=== PATIENT | female | born 1965 | race Caucasian/White ===

== ENCOUNTER 2018-06-10 13:34 | Outpatient (CLI) | payer OTHER | END 2018-06-10 13:35 | disposition home or self-care (01) | LOC: DI 13:34 | DX: Z12.31 Encounter for screening mammogram for malignant neoplasm of breast (principal) | CPT/HCPCS: 77063; 77067 ==

== ENCOUNTER 2019-08-09 11:16 | Outpatient (CLI) | payer OTHER ==
--- NOTE | 2019-08-09 15:03 | Mammography Report ---
Reason: ROUTINE MAMMO Procedure Date: 08/09/2019 Accession Number: [id number] Procedure: ROMELIA - Screening Mammo w/Mark CPT Code: Final Report FULL RESULT: EXAM: Screening Mammo w/Mark DATE: 08/09/2019 11:36 AM CLINICAL HISTORY: Routine screening TECHNIQUE: (B) - Bilateral CC and MLO views were obtained. COMPARISON: 06/10/2018, 04/22/2017, 04/15/2016 and 01/18/2015 PARENCHYMAL PATTERN: (A) - The breasts demonstrate scattered fibroglandular densities bilaterally. FINDINGS: No significant interval change. There are no suspicious masses, calcifications, or areas of distortion. IMPRESSION: Negative examination. BI-RADS category 1. RECOMMENDATION: (ANNUAL) - Recommend routine annual screening mammography. BI-RADS CATEGORY: (1) - Negative. STANDARD QUALIFYING STATEMENTS: 1. This examination was not reviewed with the aid of Computer-Aided Detection (CAD). 2. A negative or benign imaging report should not preclude biopsy if clinically suspicious findings are present. 3. Dense breasts may obscure an underlying neoplasm. 4. This examination was reviewed with the aid of 3D breast imaging (tomosynthesis).
== END 2019-08-09 11:17 | disposition home or self-care (01) ==
LOC: DI 11:16
DX: Z12.31 Encounter for screening mammogram for malignant neoplasm of breast (principal)
CPT/HCPCS: 77063; 77067